=== PATIENT | male | born 1990 | race Caucasian/White ===

== ENCOUNTER 2018-02-08 21:23 | Emergency (ER) | payer OTHER ==
--- NOTE | 2018-02-08 22:18 | EDPHY ---
HPI/HX/ROS/PE/MDM Narrative: CLINICAL IMPRESSION: [ Constipation] ASSESSMENT/PLAN: 27-year-old male presents to the emergency department with rectal discomfort associated with constipation and inability to have a bowel movement for the last 5 days. Patient has struggled with contact constipation for most of his life. He is established with GI of the [facility] and is working on a new referral given a recent insurance change. Vital signs stable, abdomen soft with no focal peritoneal findings, x-ray shows a large fecal burden in the rectum with no associated small-bowel obstruction or significant colonic dilation. Patient received a fleets enema with some improvement in his symptoms. He declined manual disimpaction. He then received a Biscodyl suppository. He has been trying MiraLax [id number] and we recommended also trying Mag citrate. Increased water, fruits, fibers. Follow up with GI. Return to the emergency department for severe abdominal pain, fever, chills, inability to pass stool or gas, significant abdominal distension, or worsening symptoms as outlined and discharge papers. DIFFERENTIAL DX: [ Abdominal pain includes but not limited to acute appendicitis, diverticulitis , cholecystitis, pancreatitis, SBO, gastroenteritis, constipation] [ED PROCEDURES:] [See imaging results below ] ED COURSE: 10:50 p.m.: Preliminary x-ray show large stool collection and rectum with moderate stool collection throughout the colon but no obvious small bowel obstruction or severe colonic dilation. Patient was given IM Toradol and a Fleet's enema. CHIEF COMPLAINT: [ Constipation] HPI: [This is a 27-year-old male who presents to the emergency department with complaints of constipation, inability to have a bowel movement for the last 5 days, and a near syncopal episode while straining on the last this evening. Patient reports a history of chronic constipation. He has seen GI of the [facility] for this in the past. He had a new insurance changed recently and therefore has been unable to get a new follow-up appointment with GI. He states his mother struggled with constipation as well. He had reconstructive jaw surgery 2 and half weeks ago, was taking hydrocodone but stopped taking that a week and a half ago. He has been taking Bentyl fiber and drinking more water. In the last several days he has tried MiraLax once daily in addition to his benefit fiber. He reports he was able to have a very small bowel movement tonight that was hard and arthur-like. He reports generalized lower abdominal and rectal discomfort and did see some blood in his stools. He states yesterday while straining on the toilet he felt very lightheaded and had a near syncopal episode. This has happened to him in the past. No prior abdominal surgeries. No fevers, chills, abdominal distention, vomiting. 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 PHYSICAL EXAM: General Appearance: [Alert, oriented, appropriate, cooperative, NAD, well hydrated, non-toxic appearing, tachycardic, no hypoxia, laying on his side.] HEENT: [TMs are clear bilaterally no perforation or FB, no injection, no evidence of serous or mucopurulent otitis. Oropharynx clear is no erythema or exudates, no tonsillar hypertrophy or asymmetry. Dentition without abnormality. ] Respiratory: [There are no retractions, lungs are clear to auscultation.] Cardiac: [Regular rate and rhythm, no murmurs or gallops.] Gastrointestinal: [Abdomen is soft, generalized tenderness throughout, bowel sounds normal, no masses/hernia, no rigidity, guarding or focal peritoneal findings.] Skin: [Warm, dry, no rashes, no nodules on palpation.] MEDICAL DECISION MAKING: Patient was seen independently. Secondary supervising physician at time of evaluation was [ Dr. Pulido]. Diagnosis: [Constipation ]. New, requires workup Summary: [See Assessment and Plan for summary of ED visit ] Independent visualization of images, tracing, or specimens: Yes. Discussed patient with another provider: [ Dr Pulido] Patient Progress: [stable ]. - Data Points Imaging Results: Imaging Impressions Abdomen X-Ray 02/08/18 22:17 Impression: 1. Nonspecific bowel gas pattern. Medications Given: Discontinued Medications Bisacodyl (Dulcolax Rectal) 10 mg WI EDNOW ONE Stop: 02/08/18 23:31 Last Admin: 02/08/18 23:36 Dose: 10 mg Ketorolac Tromethamine (Toradol) 15 mg IM EDNOW ONE Stop: 02/08/18 22:44 Last Admin: 02/08/18 22:49 Dose: 15 mg General Time Seen by Provider: 02/08/18 21:53 Initial Vital Signs: Initial Vital Signs Temperature (C) 36.7 C 02/08/18 21:33 Heart Rate 133 H 02/08/18 21:33 Respiratory Rate 20 02/08/18 21:33 Blood Pressure 101/80 02/08/18 21:33 O2 Sat (%) 98 02/08/18 21:33 O2 Delivery Mode Room Air Allergies/Adverse Reactions: No Known Allergies Allergy (Unverified 02/08/18 21:33) Home Medications: Medication Instructions Recorded Hydrocodone-Acetamin 5-325 mg 02/08/18 Departure - Departure Disposition: Home, Routine, Self-Care Clinical Impression: Constipation Qualifiers: Constipation type: other constipation type Qualified Code(s): K59.09 - Other constipation Condition: Fair Instructions: Constipation (ED) Additional Instructions: DISCHARGE INSTRUCTIONS FROM YOUR DOCTOR Thank you for visiting our emergency department today. Please keep in mind that discharge from the emergency department does not mean that there is nothing wrong - it simply means that we have not identified an emergency condition that requires further evaluation or treatment in the hospital. You should always plan to follow up with primary care for re-evaluation of your condition in the next 2-3 days. If you have been referred to a specialist, please call as soon as possible (today or tomorrow) to schedule your follow up appointment at the appropriate time. You have a significant stool burden in the rectum on xray but no evidence of small bowel obstruction. You received a Fleets enema, biscodyl suppository and we recommend you take magnesium citrate at home. Please make a followup appointment with GI of the [facility]. Please return to the ER for severe abdominal pain, inability to pass stool or gas from your rectum, fevers, abdominal distension, or any other concerns. People present with illnesses and injuries in different ways, and it is always possible that we have missed something. You may always return for re-evaluation if symptoms worsen or if they are not improving or if you develop new/different symptoms. Again, thank you for choosing our emergency department. We hope that you feel better. Referrals: NONE *PRIMARY CARE P,. [Primary Care Provider] - As per Instructions Sabas Sullivan MD [Medical Doctor] - As per Instructions [facility] [Clinic] - As per Instructions
[2018-02-08] MEDS ORDERED: KETOROLAC 15 MG/1 ML SDV IM ONE (22:43)
[2018-02-08] MEDS ORDERED: BISACODYL 10 MG SUPP PR ONE (23:30)
[2018-02-09] MEDS ORDERED: MAGNESIUM CITRATE 300 ML BOTTLE PO ONE (00:24)
[2018-02-09 02:19] VITALS: BP 112/63
== END 2018-02-09 02:26 | disposition home or self-care (01) ==
DX: K59.09 Other constipation (principal)
CPT/HCPCS: J1885